=== PATIENT | male | born 1990 | race Two or more races ===

== ENCOUNTER 2018-01-16 04:06 | Emergency (ER) | payer OTHER ==
[~2018-01-16] VITALS: Ht 185.4 cm; Wt 88.5 kg
--- NOTE | 2018-01-16 04:46 | NUR ---
XRAY AT BEDSIDE.
--- NOTE | 2018-01-16 05:25 | NUR ---
Patient ambulatory w/ steady gait, resp even & unlabored w/ no acute distress noted. Patient discharged to home in stable condition. Written and verbal after care instructions given. Patient verbalizes understanding of instruction.
[2018-01-16 05:26] VITALS: BP 136/95
== END 2018-01-16 05:30 | disposition home or self-care (01) ==
LOC: ER 04:10
DX: R05 Cough (principal); R06.02 Shortness of breath; F17.210 Nicotine dependence, cigarettes, uncomplicated; Z71.6 Tobacco abuse counseling
CPT/HCPCS: 71045; 99283; 99406; A4606; Z7610

== ENCOUNTER 2018-03-15 14:30 | Emergency (ER) | payer OTHER ==
[~2018-03-15] VITALS: Ht 185.4 cm; Wt 103.4 kg
[2018-03-15 14:35] VITALS: BP 149/87
--- NOTE | 2018-03-15 14:45 | NUR ---
PT BIB SELF. COMP OF HAVING A GLF ACCOMPANIED BY SHOULDER PAIN. NO SOB NOTED. NO ACUTE DISTRESS AT THIS TIME. AWAITING MD WAGONER.
[2018-03-15] MEDS ORDERED: IBUPROFEN 400 MG TABLET ONE (14:58)
[2018-03-15] MEDS ORDERED: IBUPROFEN 400 MG TABLET PO ONE (15:00)
--- NOTE | 2018-03-15 15:20 | NUR ---
RADIO AT BEDSIDE.
== END 2018-03-15 15:55 | disposition home or self-care (01) ==
LOC: ER 14:35
DX: S49.81XA Other specified injuries of right shoulder and upper arm, initial encounter (principal); F17.210 Nicotine dependence, cigarettes, uncomplicated; W01.0XXA Fall on same level from slipping, tripping and stumbling without subsequent striking against object, initial encounter; Y93.89 Activity, other specified; Y92.89 Other specified places as the place of occurrence of the external cause; Y99.8 Other external cause status
CPT/HCPCS: 73030-TC

== ENCOUNTER 2019-08-01 02:10 | Emergency (ER) | payer OTHER ==
[~2019-08-01] VITALS: Ht 208.3 cm; Wt 109.8 kg
[2019-08-01] MEDS ORDERED: FAMOTIDINE (20 MG) 20 MG TABLET PO ONE (02:30)
[2019-08-01] MEDS ORDERED: LIDOCAINE VISCOUS 2% UD 15 ML UDC MM ONE (02:30)
[2019-08-01] MEDS ORDERED: ONDANSETRON 4 MG TAB.RAPDIS SL ONE (02:30)
[2019-08-01] MEDS ORDERED: MAG HYDROX/AL HYDROX/SIMETH 30 ML UDC PO ONE (02:30)
[2019-08-01 02:31] VITALS: BP 139/79
--- NOTE | 2019-08-01 02:31 | NUR ---
PT AAOX4. AMBULATORY WITH STEADY GAIT. BIBS C/O VOMITING BLOOD X 1 DAY. MD AT BEDSIDE FOR EVAL. PLACED ON MONITOPR AND PULSE OX. VSS. WILL COTNINUE TO MONITOR. NO ACUTE DISTRESS NOTED.
[2019-08-01] MEDS ORDERED: LIDOCAINE VISCOUS 2% UD 15 ML UDC ONE (02:34)
[2019-08-01] MEDS ORDERED: ONDANSETRON 4 MG TAB.RAPDIS ONE (02:34)
[2019-08-01] MEDS ORDERED: MAG HYDROX/AL HYDROX/SIMETH 30 ML UDC ONE (02:34)
[2019-08-01] MEDS ORDERED: FAMOTIDINE (20 MG) 20 MG TABLET ONE (02:34)
== END 2019-08-01 02:44 | disposition home or self-care (01) ==
LOC: ER 02:12
DX: K29.20 Alcoholic gastritis without bleeding (principal); F10.10 Alcohol abuse, uncomplicated; F17.210 Nicotine dependence, cigarettes, uncomplicated; F32.9 Major depressive disorder, single episode, unspecified; Y90.9 Presence of alcohol in blood, level not specified
CPT/HCPCS: 99284; Q0162

== ENCOUNTER 2019-09-26 22:59 | Emergency (ER) | payer OTHER ==
[~2019-09-26] VITALS: Ht 182.9 cm; Wt 104.8 kg
[2019-09-26 23:11] VITALS: BP 142/85
[2019-09-26] MEDS ORDERED: TDAP [DIPH/PERTUSSIS/TET] 0.5 ML VIAL IM ONE ×2 (23:27→23:30)
--- NOTE | 2019-09-26 23:30 | NUR ---
EMT AT BEDSIDE FOR WOUND CARE.
--- NOTE | 2019-09-26 23:36 | NUR ---
XRAY AT BEDSIDE
--- NOTE | 2019-09-26 23:50 | NUR ---
PA AT BEDSIDE FOR WOUND CARE
== END 2019-09-27 00:13 | disposition home or self-care (01) ==
LOC: ER 23:00
DX: S61.012A Laceration without foreign body of left thumb without damage to nail, initial encounter (principal); F32.9 Major depressive disorder, single episode, unspecified; F17.210 Nicotine dependence, cigarettes, uncomplicated; Z98.890 Other specified postprocedural states; W25.XXXA Contact with sharp glass, initial encounter; Y93.89 Activity, other specified; Y92.89 Other specified places as the place of occurrence of the external cause; Y99.8 Other external cause status
CPT/HCPCS: 12001; 73130; 90471; 90715; 99283; A6403 ×2

== ENCOUNTER 2019-09-28 20:01 | Emergency (ER) | payer SELFPAY ==
[~2019-09-28] VITALS: Ht 175.3 cm; Wt 98.9 kg
[2019-09-28 20:08] VITALS: BP 107/69
--- NOTE | 2019-09-28 20:26 | NUR ---
Patient discharged to home in stable condition. Written and verbal after care instructions given. Patient verbalizes understanding of instruction.
== END 2019-09-28 20:27 | disposition home or self-care (01) ==
LOC: ER 20:03
DX: Z00.8 Encounter for other general examination (principal); F32.9 Major depressive disorder, single episode, unspecified; F17.210 Nicotine dependence, cigarettes, uncomplicated; Z98.890 Other specified postprocedural states